=== PATIENT | male | born 1970 | race Caucasian/White ===

== ENCOUNTER 2017-05-29 06:45 | Emergency (ER) | payer OTHER ==
[~2017-05-29] VITALS: Ht 175.3 cm; Wt 82.5 kg
[~2017-05-29 06:45] MED LIST: ACETAMINOPHEN PO; ALPRAZOLAM PO; ASPIRIN PO; KEFLEX500 MG PO; PROTONIX PO; TAGAMET PO; TRAMADOL HCL50 M1 PO; ZOLOFT PO
== END 2017-05-29 08:55 | disposition short-term general hospital (02) ==
LOC: CED 06:45
DX: S61.512A Laceration without foreign body of left wrist, initial encounter (principal); F17.210 Nicotine dependence, cigarettes, uncomplicated; W26.9XXA Contact with unspecified sharp object(s), initial encounter; Y92.009 Unspecified place in unspecified non-institutional (private) residence as the place of occurrence of the external cause
CPT/HCPCS: 99284